=== PATIENT | female | born 1955 | race African-American/Black ===

== ENCOUNTER 2017-01-29 18:08 | Inpatient (IN) | payer SELFPAY ==
[2017-01-29] MEDS ORDERED: Morphine INJ* 4 MG/ML 1 ML SYRINGE IV ONE ×2 (18:49→21:36)
[2017-01-29] MEDS ORDERED: Ondansetron INJ* 2 MG/ML VIAL IV ONE (18:49)
[2017-01-29] MEDS ORDERED: NS 0.9% 1000 ML* 1,000 ML IV ONE (18:49)
[2017-01-29 19:09] LABS: Hematocrit 45 % (35-47); Hemoglobin 14.9 g/dl (12.0-16.0); Mean Corpuscular HGB Conc 33 g/dl (31-36); Mean Corpuscular Hemoglobin 28 pg (27-31); Mean Corpuscular Volume 84 fL (80-97); Mean Platelet Volume 9 um3 (7.4-10.4); Red Blood Count 5.37 10^6/ul (4.0-5.4); Red Cell Distribution Width 14 % (10.5-15); White Blood Count 8.4 10^3/ul (3.5-10.8)
[2017-01-29 19:25] LABS: Albumin 4.3 g/dL (3.2-5.2); BUN/Creatinine Ratio 33.5 (8-20); C Reactive Protein 44.89 mg/L (< 5.00); Calcium 11.4 mg/dL (8.6-10.3); EGFR African American 32.9 (>60); EGFR Non-African American 25.6 (>60); Globulin 4.5 g/dL (2-4); Total Bilirubin 0.9 mg/dL (0.2-1.0); Total Protein 8.8 g/dL (6.4-8.9)
[2017-01-29 19:26] LABS: Troponin I 0.02 ng/mL (<0.04)
[2017-01-29 19:54] LABS: TSH (Thyroid Stimulating Horm) 1.07 mcIU/mL (0.34-5.60)
--- NOTE | 2017-01-29 21:18 | RAD ---
INDICATION: Abdominal pain, vomiting. History of stomach cancer. COMPARISON: No relevant prior exams available on the [facility] for comparison. TECHNIQUE: Multidetector CT images were obtained from the lung bases to the ischial tuberosities. Evaluation of the viscera is limited without IV contrast. Multiplanar reformation. REPORT: Unremarkable visualized inferior thorax. Small volume of oral contrast visualized at the thoracic esophagus. Massive predominant gastric distention with liquid contents. Mild dilatation of the first and second segments of the duodenum. No obstructing mass visualized. The remainder of the small bowel and colon are largely decompressed. Normal retrocecal appendix visualized. Negative for ascites, free air, hernias. Unremarkable adrenal glands. Cortical scarring medial RIGHT kidney. Advanced atrophy of upper pole LEFT kidney. Negative for hydronephrosis. Partially distended urinary bladder without gross abnormality. Unremarkable uterus and adnexal regions. No lymphadenopathy evident with assessment limited without IV contrast. Normal diameter abdominal aorta and iliac arteries. Decompressed IVC consistent with low volume state. Negative for suspicious osseous lesions. IMPRESSION: 1. Massive predominant gastric distention with liquid contents. Mild dilatation of the first and second segments of the duodenum. No obstructing mass, pneumatosis, or stigmata of gastric perforation visualized. The gastric distention may represent chronic gastroparesis. There are no prior exams for comparison. 2. No lymphadenopathy visualized with assessment limited without IV contrast. 3. Negative for ascites.
--- NOTE | 2017-01-29 22:16 | ED ---
Erick Schwartz Benjamin, scribed for Randal Santamaria MD on 01/29/17 at 1928 . Abdominal Pain/Female - HPI Summary HPI Summary: 61yo female with stomach CA comes to ED for N/V, abdominal pain, and constipation. Pt undergone chemotherapy, which pt recently stopped as it wasnt working. Pt was rxed oxycodone for her pain, which she was advised to cause constipation. Pts last BM was 2 weeks ago and despite trying laxative still havent had any BM since. PTs abdomen is bloated and distended. - History of Current Complaint Chief Complaint: EDAbdPain Stated Complaint: GENERAL ILLNESS Time Seen by Provider: 01/29/17 18:20 Hx Obtained From: Patient, Family/Sandblaster Glass - friends ?: No Onset/Duration: Gradual Onset, Lasting Weeks - 2 weeks, Still Present Timing: Intermittent Episode Lasting Severity Initially: Moderate Severity Currently: Moderate Location: Diffuse Radiates: No Character: Other: - bloated distended Aggravating Factor(s): Nothing Alleviating Factor(s): Nothing Associated Signs and Symptoms: Positive: Constipation, Nausea, Vomiting Allergies/Adverse Reactions: Allergies Allergy/AdvReac Type Severity Reaction Status Date / Time Penicillins Allergy Unknown Verified 01/29/17 18:33 Reaction Details Home Medications: Home Medications Oxycodone HCl 10 MG 10 mg PO Q4HR PRN 01/29/17 [History Confirmed 01/29/17] PMH/Surg Hx/FS Hx/Imm Hx Previously Healthy: No Endocrine/Hematology History: Reports: Hx Diabetes Cardiovascular History: Reports: Hx Hypertension - Cancer History Cancer Type, Location and Year: stomach CA with chemo Infectious Disease History: No Infectious Disease History: Reports: Traveled Outside the [place] in Last 30 Days - [place] - Family History Known Family History: Positive: Diabetes, Other - CA - Social History Alcohol Use: Rare Substance Use Type: Reports: None Substance Use Comment - Amount & Last Used: wants to do vap [facility] Smoking Status (MU): Former Smoker Review of Systems Constitutional: Negative Eyes: Negative ENT: Negative Cardiovascular: Negative Respiratory: Negative Positive: Abdominal Pain, Vomiting, Nausea, Other - constipation. Negative: Diarrhea Genitourinary: Negative Musculoskeletal: Negative Skin: Negative Neurological: Negative Psychological: Normal All Other Systems Reviewed And Are Negative: Yes Physical Exam Triage Information Reviewed: Yes Vital Signs On Initial Exam: Initial Vitals Temp Pulse Resp BP Pulse Ox 98.2 F 85 16 133/100 100 01/29/17 18:10 01/29/17 18:10 01/29/17 18:10 01/29/17 18:10 01/29/17 18:10 Vital Signs Reviewed: Yes Appearance: Positive: Ill-Appearing - moderate, Pain Distress - moderate, Thin Skin: Positive: Warm, Skin Color Reflects Adequate Perfusion, Dry Head/Face: Positive: Normal Head/Face Inspection Eyes: Positive: EOMI, LUCAS ENT: Positive: Normal ENT inspection Neck: Positive: Supple, Nontender Respiratory/Lung Sounds: Positive: Clear to Auscultation, Breath Sounds Present Cardiovascular: Positive: Tachycardia Abdomen Description: Positive: Distended, Other: - diffuse tenderness Bowel Sounds: Positive: Hypoactive Musculoskeletal: Positive: Strength/ROM Intact Neurological: Positive: Sensory/Motor Intact, Alert, Oriented to Person Place, Time, CN Intact II-III Psychiatric: Positive: Affect/Mood Appropriate - Pollard Coma Scale Coma Scale Total: 15 Diagnostics - Vital Signs Vital Signs Temp Pulse Resp BP Pulse Ox 01/29/17 19:14 18 01/29/17 18:35 96 99 01/29/17 18:10 98.2 F 85 16 133/100 100 - Laboratory Lab Results: Lab Results 01/29/17 01/29/17 Range/Units 19:00 19:00 WBC 8.4 (3.5-10.8) 10^3/ul RBC 5.37 (4.0-5.4) 10^6/ul Hgb 14.9 (12.0-16.0) g/dl Hct 45 (35-47) % MCV 84 (80-97) fL MCH 28 (27-31) pg MCHC 33 (31-36) g/dl RDW 14 (10.5-15) % Plt Count 312 (150-450) 10^3/ul MPV 9 (7.4-10.4) um3 Neut % (Auto) 91.0 H (38-83) % Lymph % (Auto) 2.6 L (25-47) % [place] % (Auto) 6.0 (1-9) % Eos % (Auto) 0 (0-6) % Baso % (Auto) 0.4 (0-2) % Absolute Neuts (auto) 7.6 (1.5-7.7) 10^3/ul Absolute Lymphs (auto) 0.2 L (1.0-4.8) 10^3/ul Absolute Monos (auto) 0.5 (0-0.8) 10^3/ul Absolute Eos (auto) 0 (0-0.6) 10^3/ul Absolute Basos (auto) 0 (0-0.2) 10^3/ul Absolute Nucleated RBC 0.02 10^3/ul Nucleated RBC % 0.2 INR (Anticoag Therapy) 0.95 (0.89-1.11) APTT 56.4 H (26.0-36.3) seconds Result Diagrams: 01/29/17 19:00 01/29/17 19:00 Lab Statement: Any lab studies that have been ordered have been reviewed, and results considered in the medical decision making process. - CT CT A/P W/O CT Interpretation: Positive (See Comments) - CT ABD/PEL W/O IMPRESSION: 1. Massive predominant gastric distention with liquid contents. Mild dilatation of the first and second segments of the duodenum. No obstructing mass, pneumatosis , or stigmata of gastric perforation visualized. The gastric distention may represent chronic gastroparesis. There are no prior exams for comparison. 2. No lymphadenopathy visualized with assessment limited without IV contrast. 3. Negative for ascites. CT Interpretation Completed By: Radiologist Abdominal Pain Fem Course/Dx - Course Course Of Treatment: Discussed with Dr. Mendenhall (hospitalist) at 2158. PATIENT UNABLE TO TOLERATE PO. PAIN INTRACTABLE. DICUSSED RESULTS WITH PATIENT. ADMIT HOSPITALIST STABLE. - Diagnoses Provider Diagnoses: Abdominal pain, Dehydration, Renal insufficiency Discharge - Discharge Plan Condition: Stable Disposition: ADMITTED TO [facility] Referrals: No Primary Care Phys,NOPCP [Primary Care Provider] - The documentation as recorded by the Erick rajan Benjamin accurately reflects the service I personally performed and the decisions made by me, Randal Santamaria MD.
[2017-01-29] MEDS ORDERED: PROCHLORPERAZINE INJ 5 MG/ML 2 ML VIAL IV PRN (22:48)
[2017-01-29] MEDS ORDERED: Ondansetron INJ* 2 MG/ML VIAL IV PRN (22:48)
[2017-01-29 22:50] LABS: Magnesium 2.6 mg/dL (1.9-2.7)
[2017-01-29] MEDS ORDERED: Magnesium Sulf 4 GM/100 ML IV* 4,000 MG/100 ML BAG IVPB ONE (22:50)
[2017-01-29] MEDS ORDERED: NS 0.9% w/ 40 Meq KCL 1000 ML* 1,000 ML IV SCH (23:00)
[2017-01-29] MEDS ORDERED: Scopolamine 1.5 mg* PATCH TRANSDERM SCH (23:00)
--- NOTE | 2017-01-30 00:28 | HP ---
CC: [facility] * ADMISSION HISTORY AND PHYSICAL: DATE OF ADMISSION: 01/29/17 PRIMARY CARE PROVIDER: Is out of the area. FORMER ONCOLOGIST: Dr. Barrios, out of [facility] with [facility]. ADMITTING PROVIDER: FLOWER Honeycutt SUPERVISING PHYSICIAN: Chema Mendenhall MD * (DICTATED BY FLOWER HONEYCUTT) CHIEF COMPLAINT: Constipation and abdominal pain. HISTORY OF PRESENT ILLNESS: This is a 61-year-old female previously treated for hypertension and hyperlipidemia, but diagnosed with stomach cancer in June 2016, who presented to the emergency department with complaints of abdominal pain and constipation. The patient states that she just moved to the area from [place], [place] approximately 1 week ago. She completed chemotherapy in August 2016 under the guide of her primary oncologist, Dr. Barrios, who per the patient report informed the patient that she did not respond to her initial round of chemotherapy and suggested alternate regimens which the patient elected not to pursue. She has been pursuing alternative homeopathic therapies on her own and recently moved to the area to help a friend with a retreat locally and pursue additional alternative therapies. In the meantime, the patient has had very little oral intake. She says that she was 190 pounds when she started chemotherapy about 6 months ago and comes in weighing 100 pounds today. She has really been unable to keep much substance down and vomits frequently. She has not had a bowel movement in a couple of weeks and has tried multiple [id number] laxatives without improvement. She reports associated abdominal pain that is occasionally quite severe and seems to be getting worse. She has oxycodone available for her for pain control which is ineffective. The patient denies any cough or shortness of breath or recent fevers. Apart from the diabetes and hypertension which she no longer requires therapy for due to her dramatic weight loss, she denies any other medical history. She states that she has an appointment with [place] [facility] tomorrow and her records from Dr. Barrios have been transferred there and she was planning on establishing care. She is not interested in pursuing any additional chemotherapy, although seems to be holding out hope for "alternative therapies." PAST MEDICAL HISTORY: 1. Stomach cancer. 2. Diabetes - no longer taking any routine medications. 3. Hypertension - no longer taking any routine medications. HOME MEDICATIONS: Oxycodone 10 mg p.o. q.4 hours as needed for pain. SOCIAL HISTORY: The patient quit smoking about 10 to 15 years ago, unsure of her exact pack year history. She denies any regular alcohol consumption. As noted above, she just moved to the area from [place] about a week ago, but is planning on staying here indefinitely. She is currently staying with a friend and helping on a retreat locally. REVIEW OF SYSTEMS: As noted above in HPI. All other systems reviewed and are otherwise negative. PHYSICAL EXAMINATION GENERAL: This is a cachetic-appearing 61-year-old -Swiss female who appears quite lethargic and is slow to answer questions, but thoughtful in her responses. She does appear nauseated, but is otherwise in no distress. VITAL SIGNS: Initial vitals; temperature 98.2 degrees Fahrenheit, pulse 85 beats per minute, respiratory rate 16 per minute, oxygen saturation 100% on room air, and blood pressure 133/100 mmHg. HEENT: Head is normocephalic, atraumatic. Mucous membranes are pink and dry. RESPIRATORY: Lungs are clear to auscultation without wheezes, crackles, or rhonchi. CARDIOVASCULAR: Heart has a regular rate and rhythm without murmurs, rubs, or gallops. ABDOMEN: Abdomen is distended, somewhat firm, diffusely tender to palpation with hypoactive bowel sounds present. EXTREMITIES: The patient has significant muscle waisting peripherally. No significant edema appreciated; however. LABORATORY EVALUATION: CBC shows a white blood cell count of 8400, hemoglobin of 14.9 g/dL, and a platelet count of 312,000. INR normal at 0.95. Comprehensive metabolic panel shows sodium of 125 mmol/L, potassium of 3.0, serum bicarb of 35, anion gap of 19, BUN 66, creatinine 1.97. Lactic acid of 2.1. CRP of 44.8. Lipase negative. TSH 1.07. BNP of 12. HOSPITAL IMAGIN. CT of the abdomen and pelvis shows a markedly distended stomach and proximal duodenum. 2. EKG shows a sinus rhythm without ischemic changes. ASSESSMENT AND PLAN: This is a 61-year-old female with a known history of stomach cancer, but unknown history of treatments who presents with complaints of constipation and severely distended stomach on imaging, who has been pursuing alternative chemotherapy regimens for the last 6 months or so. 1. Suspected gastric outlet obstruction - this appears to be a chronic process just based on the severity of her gastric distention and her history. Suspect that she has a distal tumor that is causing outlet obstruction and severe gastric distention. Recommend NG tube decompression for immediate symptomatic relief. Control nausea with further antiemetics. Discussed with the patient considering an upper endoscopy to evaluate for the level of obstruction and severity and whether additional palliative measures may be appropriate. The patient is interested in pursuing upper endoscopy. Does not appear to be any GI coverage available this evening. Seeing as this is not an emergency, can discuss EGD with daytime GI provider tomorrow. 2. Stomach malignancy - the patient was previously cared for by Dr. Barrios with [facility] out of [facility]. The patient states that she has a pending hospice consultation for tomorrow afternoon. We will request a palliative care consultation during her hospital stay. The patient appears to be extremely malnourished and is no longer interested in pursuing definitive therapies and appears to be an appropriate hospice candidate. We will work to obtain records from prior oncologist. Oncology consultation will not be requested at this time as the patient does not appear to be interested in pursuing further definitive therapy, but this may be helpful if alternative palliative therapies are considered based on endoscopy results. 3. Hyponatremia - secondary to hypovolemia and we will rehydrate with normal saline. 4. Hypokalemia - suspect due to significant GI losses and we will replete IV and check magnesium. 5. Renal insufficiency - unable to determine acuity as there is no prior records for evaluation, but based on her history, I assume that this is acute in nature and expect some improvement with fluid resuscitation. 6. History of diabetes and hypertension - the patient no longer requires therapy per her report after marked weight loss. 7. Malnutrition - the patient has lost nearly half of her body weight over the last 6 months with significant peripheral muscle waisting and little to no oral intake noted. 8. Code status. The patient remains full code at this time. 9. Healthcare proxy is identified as her son Gildardo Reynolds out of [place], [place], available at [phone]. 10. DVT prophylaxis. Hesitant to initiate chemical prophylaxis due to known gastric tumor and worry about causing a GI bleed. We will request SCDs at this time and will allow for ambulation as tolerated. 11. Disposition. The patient is being admitted to inpatient status. Anticipate length of stay to be greater than 2 midnights. FLOWER HONEYCUTT [id number]/[facility] #: [id number] ALICIA
[2017-01-30 05:57] LABS: Hematocrit 38 % (35-47); Hemoglobin 12.5 g/dl (12.0-16.0); Mean Corpuscular HGB Conc 33 g/dl (31-36); Mean Corpuscular Hemoglobin 27 pg (27-31); Mean Corpuscular Volume 84 fL (80-97); Mean Platelet Volume 9 um3 (7.4-10.4); Red Blood Count 4.56 10^6/ul (4.0-5.4); Red Cell Distribution Width 14 % (10.5-15); White Blood Count 7.5 10^3/ul (3.5-10.8)
[2017-01-30 06:16] LABS: BUN/Creatinine Ratio 38.2 (8-20); EGFR African American 38.3 (>60); EGFR Non-African American 29.7 (>60); Potassium 3.7 mmol/L (3.5-5.0)
--- NOTE | 2017-01-30 07:53 | RAD ---
HISTORY: Reevaluate gastric distention COMPARISONS: CT dated January 29, 2017 VIEWS: Frontal views of the abdomen. FINDINGS: BOWEL: There is a nonobstructive bowel gas pattern. There is no gaseous distention of the stomach; however, there is persistent inferior displacement of the transverse colon similar to the previous CT, suggestive of persistent fluid distention of the stomach. A gastric tube is noted with the tip in the upper abdomen, likely within a prepyloric position. CALCULI: There are no abnormal calculi. BONES AND SOFT TISSUES: Degenerative changes are noted OTHER FINDINGS: The lung bases are clear. There is no subphrenic gas. IMPRESSION: THERE IS NO GASEOUS DISTENTION OF THE STOMACH; HOWEVER, THERE IS LIKELY PERSISTENT LIQUID DISTENTION OF THE STOMACH BASED ON THE INFERIOR DISPLACED INTO THE TRANSVERSE COLON
--- NOTE | 2017-01-30 09:27 | PN ---
Subjective Date of Service: 01/30/17 Interval History: This is a 61 yo female who recently located to the area from [place], [place]. She reports that she was diagnosed with stomach cancer and was treated with chemotherapy and radiation. She was offered additional chemo but declined, as she did not tolerate it well. She also states she met with a surgeon who told her that he would have to take a large portion of her stomach and intestine, which would result in her having to eat several small meals a day. She states that "this is no different than what I'm doing now, so why have surgery?" Since then, she has been in search of alternative treatments, which has included drinking herbs and teas, participating in paradise chi, looking into acupuncture, and searching out other nutritional therapies. She states that she is not well experienced in these modalities, and she is looking for a provider to help guide her in alternative medicine. I asked the patient what her goal is by pursuing these therapies and asked if she was pursuing pain management. She affirms that she is looking for help with pain but also states that she is also looking for something to naturally shrink the tumor and treat the cancer. We then discussed her willingness to speak with our hospital specialists regarding further treatment options that we can offer here in the hospital. She is willing to have an endoscopy and open to hearing treatment options, "so long as it doesn't include chemotherapy or radiation." She has also conveyed multiple times that she would like to continue to eat food, even if it makes her sick afterwards. Dr. Hsieh entered the room during our conversation and discussed potential treatment options which included 1) PEG tube for decompression, 2) surgical rerouting around gastric outlet obstruction, 3) stent placement for dilatation, and 4) palliative care. The patient is in agreement to have the endoscopy this AM. She has then asked for the NG tube to be removed and to allow her to eat food. She was presented with the concern multiple times that she would likely vomit the food, as it will most likely get stuck. She verbalized understanding of this and then asked for a regular unrestricted diet following her endoscopy. After the procedure, she is willing to discuss options with GI and palliative care. Patient reports that she has had much relief following placement of her NG tube. She denies CP, SOB, abd pain, n/v. No other acute concerns, other than wanting to eat food as soon as possible. Family History: Unchanged from Admission Social History: Unchanged from Admission Past Medical History: Unchanged from Admission Objective Active Medications: Potassium Chloride/Dextrose (D5w Ns 0.9% 40meq Kcl 1000 Ml*) 1,000 mls @ 75 mls /hr IV PER RATE SKYE Ondansetron HCl (Zofran Inj*) 4 mg IV Q4H PRN PRN Reason: NAUSEA Pharmacy Profile Note (Scopolomine Patch Remove*) 1 note PATCH OFF Q72H SKYE Prochlorperazine Edisylate (Compazine Inj*) 5 mg IV Q6H PRN PRN Reason: NAUSEA/VOMITING Scopolamine (Transderm-Scop 1.5 Mg Patch*) 1 patch TRANSDERM Q72H SKYE Last Admin: 01/30/17 00:58 Dose: 1 patch Vital Signs 01/29/17 01/29/17 01/29/17 22:30 22:40 23:00 Temperature 97.6 F Pulse Rate 84 81 80 Respiratory 16 Rate Blood Pressure 149/98 149/98 141/98 (mmHg) O2 Sat by Pulse 95 99 95 Oximetry 01/30/17 01/30/17 01/30/17 01:17 03:42 07:26 Temperature 97.3 F 97.4 F Pulse Rate 77 73 73 Respiratory 16 16 16 Rate Blood Pressure 128/91 120/70 113/71 (mmHg) O2 Sat by Pulse 100 99 100 Oximetry Oxygen Devices in Use Now: None Appearance: Frail, cachectic, ill appearing female, sitting up in bed, NAD Eyes: No Scleral Icterus Ears/Nose/Mouth/Throat: Clear Oropharnyx, Mucous Membranes Moist Neck: NL Appearance and Movements; NL JVP Respiratory: Symmetrical Chest Expansion and Respiratory Effort, Clear to Auscultation Cardiovascular: NL Sounds; No Murmurs; No JVD Abdominal: - - abd soft, mildly distended and mildly tender Extremities: No Edema Neurological: Alert and Oriented x 3 Lines/Tubes/Other Access: Clean, Dry and Intact Peripheral IV Result Diagrams: 01/30/17 05:45 01/30/17 05:45 Additional Lab and Data: Lab Results 01/29/17 01/29/17 Range/Units 19:00 19:00 WBC 8.4 (3.5-10.8) 10^3/ul RBC 5.37 (4.0-5.4) 10^6/ul Hgb 14.9 (12.0-16.0) g/dl Hct 45 (35-47) % MCV 84 (80-97) fL MCH 28 (27-31) pg MCHC 33 (31-36) g/dl RDW 14 (10.5-15) % Plt Count 312 (150-450) 10^3/ul MPV 9 (7.4-10.4) um3 Neut % (Auto) 91.0 H (38-83) % Lymph % (Auto) 2.6 L (25-47) % [place] % (Auto) 6.0 (1-9) % Eos % (Auto) 0 (0-6) % Baso % (Auto) 0.4 (0-2) % Absolute Neuts (auto) 7.6 (1.5-7.7) 10^3/ul Absolute Lymphs (auto) 0.2 L (1.0-4.8) 10^3/ul Absolute Monos (auto) 0.5 (0-0.8) 10^3/ul Absolute Eos (auto) 0 (0-0.6) 10^3/ul Absolute Basos (auto) 0 (0-0.2) 10^3/ul Absolute Nucleated RBC 0.02 10^3/ul Nucleated RBC % 0.2 INR (Anticoag Therapy) 0.95 (0.89-1.11) APTT 56.4 H (26.0-36.3) seconds Assess/Plan/Problems-Billing Assessment: Ms. Olivera is a 61 yo female with a PMH of stomach cancer s/p chemo in [place], DM, and HTN who presented to the ED on 01/29 with concern for abdominal pain and constipation. Pt's CT scan shows significant gastric distention that is likely secondary to gastric outlet obstruction. - Patient Problems (1) Abdominal pain Code(s): R10.9 - UNSPECIFIED ABDOMINAL PAIN Comment: Suspect secondary to gastric outlet obstruction from neoplasm CT shows marked distention of stomach and proximal duodenum Appreciate GI consult Plan to evaluate extent of obstruction with upper endoscopy Patient has obtained relief of abdominal pain and distention with NG tube but is now requesting removal. Plan for palliative care consult today, as patient is refusing further chemotherapy and is not certain if she wants surgical treatment. (2) Malignant neoplasm of stomach Comment: Records requested from Dr. Barrios in [facility] with [facility]. Patient previously completed chemotherapy and states she declined surgery and further chemo. Patient declines oncology consult here and is interested in alternative therapies and [facility]. (3) Hyponatremia Code(s): E87.1 - HYPO-OSMOLALITY AND HYPONATREMIA Comment: Improving Suspect secondary to hypovolemia Continue volume replacement (4) Hypokalemia Code(s): E87.6 - HYPOKALEMIA Comment: Improving Suspect secondary to GI losses, including emesis Continue IV repletion (5) Renal insufficiency Code(s): N28.9 - DISORDER OF KIDNEY AND URETER, UNSPECIFIED Comment: Improving Acuity/chronicity unclear Patient does have hx of DM and HTN but will await previous records Likely exacerbated by patient's poor nutritional and volume status Continue IVF (6) Malnutrition Code(s): E46 - UNSPECIFIED PROTEIN-CALORIE MALNUTRITION Comment: Approx. 100lb weight loss over past 6 months Patient has significant muscle wasting noted to lower extremities Secondary to gastric cancer and likely subsequent malabsorption and obstruction (7) Hx of type 2 diabetes mellitus Code(s): Z86.39 - PERSONAL HISTORY OF ENDO, NUTRITIONAL AND METABOLIC DISEASE Comment: No longer on treatment, secondary to stomach cancer and weight loss (8) Hx of essential hypertension Code(s): Z86.79 - PERSONAL HISTORY OF OTHER DISEASES OF THE CIRCULATORY SYSTEM Comment: Normotensive No longer on treatment, secondary to stomach cancer and weight loss (9) DVT prophylaxis Comment: SCDs Concern for gastrointestinal bleeding with significant stomach cancer (10) Full code status Code(s): Z78.9 - OTHER SPECIFIED HEALTH STATUS Comment: Patient would like to be a full code. Plan for palliative care meeting today, code status will be readdressed during meeting. Status and Disposition: Inpatient admission. Anticipate 2-4 day LOS. Dispo depending on palliative care meeting and endoscopy findings.
[2017-01-30] MEDS ORDERED: Dextrose 50% Syringe 50 ML* 25 GM/50 ML SYRINGE IV PUSH PRN (09:56)
[2017-01-30] MEDS ORDERED: D5W NS 0.9% 40Meq KCL 1000 ML* 1,000 ML IV SCH (10:00)
[2017-01-30] MEDS ORDERED: Morphine INJ* 4 MG/ML 1 ML SYRINGE IV PRN (11:00)
[2017-01-30] MEDS ORDERED: Dextrose 50% Syringe 50 ML* 25 GM/50 ML SYRINGE IV PUSH ONE (12:00)
[2017-01-30] MEDS ORDERED: Docusate LIQ* 100 MG/10 ML UDC PO PRN (12:02)
[2017-01-30] MEDS ORDERED: Polyethylene Glycol 3350* 17 GM PACKET PO PRN (12:02)
--- NOTE | 2017-01-30 14:18 | CONS ---
CC: FLOWER Charles * CONSULTATION REPORT: DATE OF CONSULTATION: 01/30/17 REQUESTING PHYSICIAN: FLOWER Charles INDICATION: Gastric outlet obstruction. NARRATIVE: This is a very pleasant, but unfortunate 61-year-old female, who has a history of gastric cancer. We do not have any records yet. I did speak to the patient and reviewed the chart. Reportedly this was diagnosed at the end of last year. She had been down in [place] receiving all of her treatments. By her report, she finished chemotherapy around August of this year. However, she did not respond to the chemotherapy and her oncologist recommended other treatments; however, the patient did not want to pursue these. She has moved here to [place] to pursue alternative therapies for her stomach cancer. She states that she has been vomiting every day for the past few weeks. She has lost approximately 90 pounds. She will vomit food that she just ate. She also has been constipated. She has been using narcotics for pain control. There is no blood in the vomit. She did have an abdominal x-ray first thing this morning, which showed gaseous distention of the stomach suggestive of a gastric outlet obstruction. PAST MEDICAL HISTORY: Significant for, hypertension, diabetes, and stomach cancer. MEDICATIONS: Include oxycodone as needed. SOCIAL HISTORY: She quit smoking many years ago. She just moved from [place] to [place]. REVIEW OF SYSTEMS: Twelve systems were reviewed, other than mentioned in the HPI were unremarkable. PHYSICAL EXAM: Temperature is 97.4, blood pressure is 120/74, pulse is 73. General: Chronically ill-appearing female, in no apparent distress. Alert, oriented, and pleasant. HEENT: NG tube in place. Poor dentition. Neck is supple. Trachea is midline. Heart: Regular rate and rhythm. Lungs: Clear to auscultation. Abdomen: Slightly distended, soft. Positive bowel sounds. Skin is warm and dry. LABORATORY DATA/LABORATORY DATA: Of note, white count is 7.5, hemoglobin 12.5, INR is 0.95. Her BUN is 66, creatinine 1.73. CT of the abdomen and pelvis from last night in the emergency room showed gastric distention with liquid dilatation of the first and second portions of the duodenum. ASSESSMENT AND PLAN: This is a very pleasant 61-year-old female with reported gastric cancer, who likely has gastric outlet obstruction. I had a very long discussion with the patient and her friends. She appears to be palliative at this point. She is pursuing alternative therapies at this point. Given her gastric outlet obstruction we had a long discussion regarding what to do about that. We discussed possible options including surgery for diversion, which will be palliative, palliative stents, a venting PEG tube, or doing nothing. The patient would like to first get more information. She is requesting an upper endoscopy to evaluate how narrow the opening is and then she would like to have time to think about things and have discussions with her friends regarding what to do next. We will pursue an upper endoscopy today and then await her decision at a later time. [id number]/CPS #: [id number] ALICIA
--- NOTE | 2017-01-30 16:26 | PN ---
Progress Note - Progress Note Date of Service: 01/30/17 Note: I stopped by to speak with this patient about her plans for outpatient follow up. She needs a primary care provider. She is clearly hospice appropriate and plans to return to [facility], a residence [place] in [place]. She has plans for alternative therapies such as homeopathy and dietary modifications because she wants to try to shrink her tumor and regain her weight and strength. She has lost about 90 pounds in the last few months. Her main symptoms have been vomiting and gastric distention, and weight loss, all presumably secondary to gastric outlet obstruction. Although she is opposed to a G tube, she is willing to consider a stent to relieve her symptoms. I spoke with Dr. Hsieh and was informed that stents are not placed in this hospital, and she would have to be transported elsewhere, probably [place], for stent placement. We discussed advance directives at great length and she has elected DNR/DNI status.
--- NOTE | 2017-01-30 17:44 | CONS ---
PALLIATIVE CARE CONSULTATION: DATE OF CONSULT: 01/30/17 PRIMARY CARE PHYSICIAN: The patient does not have a primary care physician. REFERRING PROVIDER: FLOWER Charles HOSPITAL COURSE: This is a 61-year-old female with past medical history of stage IV gastric cancer diagnosed in June 2016, status post chemo, who presented to the emergency room with constipation and abdominal pain. The patient states that she was diagnosed with stage IV gastric cancer back in June 2016. At that time, she received chemotherapy and it did not work. At that time, she no longer wanted chemo, radiation, or surgery as an option, but she was exploring alternative treatment. She has been living in [place] up until a week ago when she came up to [place] for a conference and then was seeking alternative treatment program and was told about the [facility], the [facility] in [place], and came here and has been here for the past week. The patient has been frustrated with the medical system. She states when she was down at [place], they had difficulty with continuity and treating her for pain and she lost her disability insurance at that time and they did not want to treat her with alternative treatment that she was recommending. On my encounter, the patient wants care for her cancer with alternative therapy. She states that she has had significant amount of abdominal pain, anorexia, and a 90-pound weight loss over the past year, and she has nausea and vomiting almost daily. On arrival to the emergency room, there was concern for gastric outlet obstruction. The patient had an NG tube placed, remained n.p.o., and had a GI consult for further evaluation. She spoke with Dr. Hsieh who she is agreeable to undergo an EGD for more prognostic information, but does not seem to be interested in any further intervention. I asked her about feeding tubes, she states that she does not want it and does not think she will ever need it. She is requesting to have NG tube removed and to eat solid food as the NG tube is very uncomfortable for her. She is no longer having any abdominal pain at this time and no nausea. She is stating that she is uncomfortable due to the NG tube. Last bowel movement was 2 weeks ago. She is passing flatus. I spoke with the patient at length regarding that with a stage IV gastric cancer and not interested in seeking traditional treatment with chemo, radiation, or surgery that she is eligible for hospice services with a prognosis of less than 6 months and she is interested in receiving hospice services at [facility] that she is living at. I did speak with her regarding the hospital and hospice care does not do alternative treatments and that we would not be able to provide any recommendations for alternative therapy and that there are no research studies that show that alternative treatment cures cancer. We also spoke about the MOLST form at length. The patient states that she needs to think about it and does not think it is going to be a concern for her for a while and would like to remain a full code at this time. She does have 2 friends there from [facility], who state that they will support her back at the [facility] caring for her with hospice involvement. Otherwise remaining review of systems is negative. PAST MEDICAL HISTORY: 1. History of stage IV gastric cancer, diagnosed in June 2016, status post chemotherapy. 2. History of diabetes, diet controlled. INPATIENT MEDICATIONS: 1. D5 normal saline at 75 cc an hour. 2. Morphine 4 mg every 4 hours as needed for pain. 3. Zofran 4 mg IV q.4 hours as needed. 4. Compazine 5 mg every 6 hours as needed. 5. Scopolamine patch q.72 hours. ALLERGIES: PENICILLIN, unknown reaction. FAMILY HISTORY: Reviewed and noncontributory. SOCIAL HISTORY: As mentioned, the patient was living in [place], has moved up to the [facility] since this past week. Her son , Don Mckay, is her healthcare proxy. His phone number is [phone]. He resides in [place]. She is currently a full code. She quit smoking 10 to 15 years ago. No alcohol use or illicit drug use. REVIEW OF SYSTEMS: Fourteen-point review of systems as mentioned in the HPI. Pertinent positives and negatives as mentioned in the HPI, otherwise negative. PHYSICAL EXAM: Vital Signs: Temp 97.4, pulse rate 73, respiratory rate 16, oxygen saturation 100% on room air, blood pressure 113/71. General: In no acute distress, cachectic, malnourished appearing, with 2 of her friends at the bedside. Head, normocephalic. She has bitemporal wasting. Eyes: Pupils are equal and reactive, anicteric. Oropharynx: Mucous membranes are dry. NG tube was placed in the right naris. Neck is supple. Cardiac: Regular rate and rhythm. Soft systolic murmur heard throughout. Respiratory: Diminished breath sounds. No wheezes, rhonchi, or rales. Abdomen: Hypoactive bowel sounds. Soft, some mild distention, mild mid abdominal discomfort. No rebound or guarding. Extremities: No clubbing, cyanosis, or edema. Neurologic: Alert and oriented x3. No focal neurological deficits. DIAGNOSTIC STUDIES/LAB DATA: White count 7.5, hemoglobin 12.5, hematocrit 38, and platelets 222. Sodium 130, potassium 3.7, chloride 83, bicarb 37, BUN 66, creatinine 1.73, glucose 102, albumin is 4.3. Radiographic sheila: Abdomen and pelvis CT shows massive predominant gastric distention with liquid contents, mild dilatation of the first and second segments of the duodenum. No obstructing mass, pneumatosis, or stigmata of gastric perforation visualized. The gastric distention may represent chronic gastroparesis. Abdominal film: There is no gaseous distention of the stomach. However, there is likely persistent liquid distention of the stomach based on the inferior into the transverse colon. ASSESSMENT AND PLAN: This is a 61-year-old female with past medical history of stage IV gastric cancer, who presented to the emergency room with abdominal pain and constipation, also was noted to be in acute renal failure. Her findings are concerning for gastric outlet obstruction. I spoke with the patient at length regarding her goals and she seems unrealistic in her expectation that alternative therapy is going to cure her cancer. She also wants her goal here to be symptom free and to treat her abdominal pain, which we have seem to have done with NG tube placement and morphine. She is now requesting NG tube be removed. I spoke with Dr. Hsieh who is agreeable to this and allowing her to be on regular diet and then she is going to be n.p.o. after midnight for EGD for further prognosis. The patient is interested in enrolling with hospice, which she is eligible for based on her stage IV gastric cancer and her malnourished state with weight loss. I think once she is able to establish rapport, re-addressing her goals of care, her MOLST form will be pertinent to her care. I did start also her on bowel regimen as well as she is getting morphine as needed for pain and I am concerned that when she resumes her solid diet intake that her abdominal pain discomfort and nausea, vomiting will return and then she will need NG tube placed back in. The [facility] staff states that they can support her there with hospice services once the patient is stable for discharge. Pending tomorrow's EGD results, patient may be a candidate for palliative stent which would allow her to tolerate PO better. Recommend follow up discussion regarding management once EGD has been done. Patient also needs to be established with a PCP in the community. Thank you for this consultation. I will follow along with you. PATIENT TIME: Greater than 100 minutes spent doing the consultation, more than half the time was spent in direct patient contact. [id number]/[facility] #: [id number] ALICIA
[2017-01-30] MEDS ORDERED: D10W 1000 ML BAG* 1,000 ML IV SCH (18:00)
[2017-01-31 06:17] LABS: Calcium 10.1 mg/dL (8.6-10.3); EGFR African American 60.7 (>60); EGFR Non-African American 47.2 (>60); Potassium 3.2 mmol/L (3.5-5.0)
[2017-01-31] MEDS ORDERED: D5W NS 0.9% 40Meq KCL 1000 ML* 1,000 ML IV SCH (08:00)
--- NOTE | 2017-01-31 08:30 | PN ---
Subjective Date of Service: 01/31/17 Interval History: Patient seen and examined at bedside. She is upset because she had chest and abdominal pain yesterday around 1700, stating "It's different than before." She thinks it may be due to her blood sugar fluctuations. When presented with the idea that the patient had eaten solid foods earlier in the day and was very likely experiencing discomfort from her gastric outlet obstruction, the patient became very agitated stating, "the pain has never been like that." She also states the NG tube did not help with the discomfort like it did when she was admitted. She was frustrated with the idea that the food she ate may still be causing her discomfort. We discussed that the endoscopy may help us to know the degree of her obstruction and if the food she ate yesterday may be contributing to her persistent discomfort. Patient in agreement with endoscopy today. Currently, the patient denies chest pain, SOB. She reports persistent abdominal fullness, denies n/v. Family History: Unchanged from Admission Social History: Unchanged from Admission Past Medical History: Unchanged from Admission Objective Active Medications: Dextrose (D50w Syringe 50 Ml*) 25 gm IV PUSH .FOR FS < 60 - SS PRN PRN Reason: FS < 60 Last Admin: 01/30/17 17:28 Dose: 25 gm Docusate Sodium (Colace Liq*) 100 mg PO BID PRN PRN Reason: CONSTIPATION Heparin Sodium (Porcine) (Heparin Flush Port (Ivad)) 5 ml FLUSH DAILY SKYE PRN Reason: Protocol Potassium Chloride/Dextrose (D5w Ns 0.9% 40meq Kcl 1000 Ml*) 1,000 mls @ 100 mls/hr IV PER RATE [facility] Morphine Sulfate (Morphine Inj (Syringe)*) 4 mg IV Q4H PRN PRN Reason: PAIN Last Admin: 01/30/17 17:57 Dose: 4 mg Ondansetron HCl (Zofran Inj*) 4 mg IV Q4H PRN PRN Reason: NAUSEA Last Admin: 01/30/17 17:57 Dose: 4 mg Pharmacy Profile Note (Scopolomine Patch Remove*) 1 note PATCH OFF Q72H [facility] Polyethylene Glycol/Electrolytes (Miralax*) 17 gm PO DAILY PRN PRN Reason: CONSTIPATION Prochlorperazine Edisylate (Compazine Inj*) 5 mg IV Q6H PRN PRN Reason: NAUSEA/VOMITING Scopolamine (Transderm-Scop 1.5 Mg Patch*) 1 patch TRANSDERM Q72H [facility] Last Admin: 01/30/17 00:58 Dose: 1 patch Vital Signs 01/30/17 01/30/17 01/30/17 16:35 17:57 18:57 Temperature 97.7 F Pulse Rate 79 Respiratory 19 18 18 Rate Blood Pressure 127/83 (mmHg) O2 Sat by Pulse 99 Oximetry 01/30/17 01/30/17 01/30/17 19:16 20:05 21:00 Temperature 96.3 F Pulse Rate 79 Respiratory 20 18 Rate Blood Pressure 147/111 (mmHg) O2 Sat by Pulse 100 Oximetry 01/30/17 01/31/17 23:23 03:50 Temperature 97.6 F 97.7 F Pulse Rate 66 77 Respiratory 16 16 Rate Blood Pressure 116/84 132/86 (mmHg) O2 Sat by Pulse 100 100 Oximetry Oxygen Devices in Use Now: None Appearance: Cachectic, frail female, sitting up in bed, withdrawn Eyes: No Scleral Icterus Ears/Nose/Mouth/Throat: Mucous Membranes Moist Neck: NL Appearance and Movements; NL JVP Respiratory: Symmetrical Chest Expansion and Respiratory Effort, Clear to Auscultation Cardiovascular: NL Sounds; No Murmurs; No JVD, RRR Abdominal: - - abd soft, mildly distended, tender to palpation Extremities: - - muscle wasting noted to peripheral extremities, poor muscle mass Neurological: Alert and Oriented x 3 Lines/Tubes/Other Access: Clean, Dry and Intact Naso-enteral Tube, Clean, Dry and Intact Peripheral IV Result Diagrams: 01/30/17 05:45 01/31/17 05:44 Additional Lab and Data: Lab Results 01/29/17 01/29/17 Range/Units 19:00 19:00 WBC 8.4 (3.5-10.8) 10^3/ul RBC 5.37 (4.0-5.4) 10^6/ul Hgb 14.9 (12.0-16.0) g/dl Hct 45 (35-47) % MCV 84 (80-97) fL MCH 28 (27-31) pg MCHC 33 (31-36) g/dl RDW 14 (10.5-15) % Plt Count 312 (150-450) 10^3/ul MPV 9 (7.4-10.4) um3 Neut % (Auto) 91.0 H (38-83) % Lymph % (Auto) 2.6 L (25-47) % [place] % (Auto) 6.0 (1-9) % Eos % (Auto) 0 (0-6) % Baso % (Auto) 0.4 (0-2) % Absolute Neuts (auto) 7.6 (1.5-7.7) 10^3/ul Absolute Lymphs (auto) 0.2 L (1.0-4.8) 10^3/ul Absolute Monos (auto) 0.5 (0-0.8) 10^3/ul Absolute Eos (auto) 0 (0-0.6) 10^3/ul Absolute Basos (auto) 0 (0-0.2) 10^3/ul Absolute Nucleated RBC 0.02 10^3/ul Nucleated RBC % 0.2 INR (Anticoag Therapy) 0.95 (0.89-1.11) APTT 56.4 H (26.0-36.3) seconds Assess/Plan/Problems-Billing Assessment: Ms. Olivera is a 61 yo female with a PMH of stomach cancer s/p chemo in [place], DM, and HTN who presented to the ED on 01/29 with concern for abdominal pain and constipation. Pt's CT scan shows significant gastric distention that is likely secondary to gastric outlet obstruction. - Patient Problems (1) Abdominal pain Code(s): R10.9 - UNSPECIFIED ABDOMINAL PAIN Comment: Initially improved with NGT. Patient insisted on eating pancakes yesterday and now has recurrent complaint of abdominal fullness and discomfort as well as pain yesterday. Suspect secondary to gastric outlet obstruction from neoplasm CT shows marked distention of stomach and proximal duodenum Appreciate GI consult Plan to evaluate extent of obstruction with upper endoscopy today Patient plans to sign on with hospice; may be open to possibility of stent in [place], if possible. (2) Malignant neoplasm of stomach Comment: Patient with stage IV stomach cancer, with possible liver involvement S/p FOLFOX chemotherapy, per records Patient previously completed chemotherapy and states she declined surgery and further chemo. Patient declines oncology consult here and is interested in alternative therapies and [facility]. (3) Hyponatremia Code(s): E87.1 - HYPO-OSMOLALITY AND HYPONATREMIA Comment: Suspect secondary to hypovolemia Continue volume replacement (4) Hypokalemia Code(s): E87.6 - HYPOKALEMIA Comment: Suspect secondary to GI losses, including emesis Continue IV repletion (5) Renal insufficiency Code(s): N28.9 - DISORDER OF KIDNEY AND URETER, UNSPECIFIED Comment: Improving Patient does appear to have some mild renal insufficiency at baseline based on [facility] records (creatinine noted 1.3 in notes) Likely exacerbated by patient's poor nutritional and volume status Continue IVF (6) Severe protein-calorie malnutrition Code(s): E43 - UNSPECIFIED SEVERE PROTEIN-CALORIE MALNUTRITION Comment: Approx. 100lb weight loss over past 6 months Patient has significant muscle wasting noted to lower extremities Secondary to gastric cancer and likely subsequent malabsorption and obstruction (7) Hx of type 2 diabetes mellitus Code(s): Z86.39 - PERSONAL HISTORY OF ENDO, NUTRITIONAL AND METABOLIC DISEASE Comment: Patient accidentally received 20 units regular insulin yesterday BG has normalized with D10W infusion Continue q4 BG checks, discontinue later today if BG remains stable No longer takes insulin or hypoglycemic medications, secondary to stomach cancer and weight loss (8) Hx of essential hypertension Code(s): Z86.79 - PERSONAL HISTORY OF OTHER DISEASES OF THE CIRCULATORY SYSTEM Comment: Normotensive No longer on treatment, secondary to stomach cancer and weight loss (9) DVT prophylaxis Comment: SCDs Concern for gastrointestinal bleeding with significant stomach cancer (10) DNR (do not resuscitate) Status and Disposition: Inpatient admission. Anticipate 2-4 day LOS. Dispo depending on palliative care meeting and endoscopy findings.
[2017-01-31] MEDS ORDERED: Meperidine SYRINGE* 50 MG/ML ONE (09:07)
[2017-01-31] MEDS ORDERED: Midazolam* 1 MG/ML 10 ML VIAL (10 MG) ONE (09:07)
[2017-01-31 13:36] VITALS: BP 126/86
--- NOTE | 2017-01-31 14:51 | PN ---
Hospitalist Progress Note Phone call received from nursing stating that patient was visibly upset that no one has updated her and has been asking to leave. I met with patient and her friend and discussed the endoscopy findings. Per Dr. Duran, he was unable to pass the scope through the pylorus, indicating complete obstruction (also opens possibility of a peritoneal carcinomatosis). I discussed these findings with the patient, as well as the option of a venting PEG tube and/or the possibility of pursuing a J-tube for nutrition. The patient continues to communicate her desire to eat the foods she wants. She reports that she feels her pain is due to constipation and is asking for bowel medication. She has asked for written information on these treatments but would like something to help with her bowels and to go home. We discussed that the patient likely does not pass much to create residue for regular BM but patient agreed to KUB as an objective evaluation. We could certainly try a gentle enema to see if we can stimulate any bowel movement, if stool is present. Oral preparations would likely be minimally or ineffective, secondary to malabsorption from stomach cancer. Patient is refusing any more treatment here and wants to leave today. She has asked for pain medication to be sent to a pharmacy, which is, of course, reasonable. Patient to have hospice sign on tomorrow. 45 minutes spent in meeting with patient and friend.
--- NOTE | 2017-01-31 15:16 | RAD ---
HISTORY: Constipation, abdominal pain COMPARISONS: January 30, 2017 VIEWS: Frontal views of the abdomen. FINDINGS: BOWEL: There is a nonobstructive bowel gas pattern. There is a large amount of stool within the colon. There is no appreciable gaseous distention of the stomach. CALCULI: There are no abnormal calculi. BONES AND SOFT TISSUES: There are no osseous abnormalities. OTHER FINDINGS: The lung bases are clear. There is no subphrenic gas.There has been interval removal of a gastric tube. IMPRESSION: NONOBSTRUCTIVE BOWEL GAS PATTERN. LARGE AMOUNT OF STOOL WITHIN THE COLON.
--- NOTE | 2017-02-01 08:25 | PRO ---
DATE: 01/31/17 - ROOM #420 REFERRING PHYSICIAN: Lori Howard NP * PROCEDURE: Upper gastrointestinal endoscopy and biopsy of gastric antrum. INDICATION: This 61-year-old woman with gastric cancer, originally treated in [place] and felt to be now untreatable via chemotherapy, presents with gastric outlet obstruction or upper gastrointestinal obstruction. CT scan showed a large distended stomach, some distention of first to second portion of the duodenum, and no dominant mass. Extensive discussions have been held with the patient, the hospitalist team, palliative care team, and Dr. Hsieh. Today's exam was perceived of as a diagnostic exam to assist in further decision making vis-a-vis comfort care palliation, percutaneous gastrostomy plus comfort care, dilation of a stricture if available versus palliative surgery, or even referral for a stent. This was agreed with the patient before sedatives were administered today. She agreed that, if the nasogastric tube would likely need to be reinserted within a matter of hours to days, it would be best to leave it in place. ENDOSCOPIST: Dr. Duran. MEDICATIONS: Midazolam 3.5, meperidine 25 with good somnolence. FINDINGS: She is a chronically ill-appearing, emaciated black female in no overt distress. She was not coughing or short of breath. EGD: Larynx - narrow, with an NG tube in place. Esophagus - normal mucosa with the NG tube transiting, and the EG junction at 38 appearing normal. There were no erosions and no scars. Stomach - two-thirds full with a large amount of semi-solid particulate and liquid debris. In the course of the procedure, approximately 500 cc of material was suctioned up plus an additional 200 to 300 cc of irrigation material that was used to unclog the scope periodically. No regurgitation or aspiration occurred. Stomach was partially distended and, at the end of the procedure, translumination and finger indentation was achieved in the appropriate mid epigastric area. There was extensive erythema and erosive change in the stomach. The antrum had a normal configuration, but was irritated and granular. The pylorus was stenotic. The appearance of abnormal tissue, although not a fungating mass. Biopsies were taken. An attempt was made to thread a cqdogvr-gjd-amfcl dilator into the distal duodenum, but this failed and no passage could be obtained, and thus no dilation was done. Biopsies were taken of the pylorus. IMPRESSION: Pyloric obstruction versus high upper gastrointestinal obstruction - CT scan results make both possibilities a consideration. Placement of a stent is not likely to be efficacious, although it could be considered at another center. A palliative gastrostomy tube would be appropriate if the patient wishes to go that route with her palliation plan. It would be considered clearly higher risk for local infection and bleeding than the average percutaneous gastrostomy. At this time, the choice of an outpatient primary physician or hospice supervising physician has not been made. Addendum: pyloric Bx show invasive adenocarcinoma [id number]/[facility] #: [id number] MTDD
--- NOTE | 2017-02-01 16:04 | DS ---
CC: Dr. Gilbert of Palliative Care; Dr. Tor Hsieh, Gastroenterology * MEDICINE DISCHARGE SUMMARY: DATE OF ADMISSION: 01/29/17 DATE OF DISCHARGE: 01/31/17 PROVIDER: Jose Frias NP ATTENDING PHYSICIAN: Dr. Lucia Franco * (dictated by Jose Frias NP). PRIMARY CARE PROVIDER: The patient recently relocated from [place]. Referral pending. CONSULTING PHYSICIAN: Dr. Lillian Gilbert, Palliative Care. GASTROENTEROLOGY: Dr. Tor Hsieh. PRIMARY DISCHARGE DIAGNOSES: 1. Stage 4 stomach cancer. 2. Abdominal pain. 3. Severe protein calorie malnutrition. SECONDARY DISCHARGE DIAGNOSES: 1. Type 2 diabetes, diet controlled. 2. Hypertension. HOME MEDICATIONS AT DISCHARGE: 1. Morphine oral concentrate 5 mg q.4 hours p.r.n. pain. 2. Scopolamine 1.5 mg patch 1 patch transdermally q.72 hours. 3. Dulcolax suppository 10 mg per rectum daily p.r.n. DIAGNOSTIC TESTING DURING THIS ADMISSION: 1. CT of the abdomen and pelvis, impression: Massive predominant gastric distention with liquid contents. Mild dilatation of the first and second segment of the duodenum. No obstructing mass, pneumatosis, or stigmata of gastric perforation visualized. The gastric distention may represent chronic gastroparesis. There are no prior exams for comparison. 2. No lymphadenopathy visualized with assessment limited without IV contrast. 3. Negative for ascites. 4. KUB of the abdomen from 01/29/17, impression: There is no gastric distention in the stomach. However, there is likely persisted liquid distention of the stomach based on the inferior displaced into the transverse colon. 5. KUB from 01/31/17, impression: Non obstructive bowel gas pattern. Large amount of stool within the colon. HOSPITAL COURSE OF STAY: For full details, please refer to the H and P provided by [facility]. In summary, Ms. Olivera is a 61-year-old female who was recently treated for a stage 4 stomach cancer in [place], [place]. She was diagnosed in June 2016 and, since then, has experienced an approximate 90 to 100 pound weight loss. In [place], the patient underwent chemotherapy and radiation under the care of her primary oncologist, Dr. Barrios. The patient apparently declined to have surgery and relocated here to [place] with the hope of pursuing additional alternative therapies to treat and cure her cancer. The patient does endorse increasingly poor p.o. intake and has had difficulty keeping food down. She reports frequent vomiting. She reports not having any bowel movement in over 10 days and has tried multiple cwkv-szf-vmssrvq laxatives without effect. She has reported that her pain control with oxycodone has been ineffective. As an outpatient, she has pursued an appointment with [facility] but was unable to make to the appointment due to her admission here in the hospital. Of note, much time was spent with this patient during her admission discussing her condition and prognosis. The patient appears to understand most of what is being told to her but continues to insist that she would like to pursue alternative treatments that are "natural" in order to cure her cancer. She has been shown her scans, and multiple teaching attempts have been made to help the patient understand the severity of her illness as well the concern in regards to her degree of gastric outlet obstruction. The patient was made aware by multiple providers that her obstruction is so severe that she is unable to meet her nutritional needs and that continued p.o. intake without medical intervention will likely continue to exacerbate her pain and discomfort, as well as increase her risk for perforation and other complications. The patient did agree to an endoscopy while she was here in the hospital and the report is not back yet. However, per the verbal report, the patient was unable to have any further evaluation past the stomach, as the pylorus was completely obstructed. This raises a concern for potential peritoneal carcinomatosis or continued advancement of the tumor. Again, this was discussed with the patient , and we did discuss options, such as a venting PEG tube, in order to provide relief of the distention and fluid buildup as well as the possibility of a jejunostomy tube to provide the patient with some type of nutrition. The patient states that she will not pursue any of these therapies until she is further able to pray and research natural alternative therapies. The patient was initially given an NG tube upon admission with verbalized relief. However, the patient asked for it to be removed the following day and proceeded to eat a meal of pancakes, sherbert, and other liquids. Later that evening, she became uncomfortable again, and the NG tube was replaced. The following day, on 01/31/17, she did have her endoscopy. When she returned, she reportedly sneezed and accidently dislodged her NG tube and refused to have it replaced. At this point, we discussed treatment options, as well as other palliative options, which included the venting PEG tube. Again, the patient has declined this, stating that she feels that these medical interventions "will contribute to a decline in her quality of life." We did discuss if the patient leaves the hospital today that she is at risk for gastric perforation as well as inevitable repeated vomiting and abdominal fullness and distention. The patient verbalized understanding of this and has asked to have morphine sent home with her. She does have an appointment to sign on with [facility] on . Prior to discharge, the patient asked for an enema to help with constipation. A KUB did reveal that she does have a large amount of stool within the colon. However, the patient became very agitated that the enema was not provided within the time period that she felt was appropriate and decided to leave without this intervention. Per her request, I did send Dulcolax suppositories to the pharmacy. We have also sent morphine oral concentrate, which will be better absorbed sublingually and hopefully provide the patient with better pain management. She has declined any prescription for lorazepam at this time but will discuss this with [facility] further. I did also send a prescription for scopolamine patches to help with nausea control. Ms. Olivera does not currently have insurance but out of pocket cost estimates were obtained and shared with the patient. Attempt was made to dispense medications to the patient prior to discharge, but the patient declined to stay. Ms. Olivera does have a navigator meeting scheduled next week to help obtain [facility] Medicaid. Again, this is an unfortunate 61-year-old female with stage 4 stomach cancer, who has declined any further traditional therapies for her stomach cancer. She is currently in agreement with the plan to sign on with [facility]. The hospital shutdown planner is working on obtaining her an appointment with a local primary care physician. 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 CONCERNS AT DISCHARGE: [facility] Oliver[facility]. She will sign on with [facility] tomorrow, , at her residence. She has specifically declined an oncology consult or any further gastroenterology consults or interventions at this time. The patient was given education and information regarding potential treatment, such as a venting PEG tube, to follow up on with her primary care provider in the future. DIET: As tolerated. The patient will be comfort care and a patient of [facility]. ACTIVITY: As tolerated. CONDITION: Guarded with poor prognosis. DISPOSITION: To home with hospice sign on. TIME SPENT: Time spent on this discharge was approximately 65 minutes. Again, this is only a brief summary of the patient's hospital course of stay. For full details, please refer to the full medical record. If you have any further questions or need further assistance, please feel free to contact me at [phone]. JOSE FRIAS NP [id number]/[facility] #: [id number] ALICIA
[2017-02-01] MEDS ORDERED: Scopolomine PATCH Remove* 1 NOTE MISC PATCH OFF SCH (23:00)
== END 2017-01-31 17:05 | disposition hospice, home (50) | DRG 380 ==
LOC: ED 18:08 → MED 22:29
PROVIDERS: ADMIT Internal Medicine; ATTEND Internal Medicine
PROC: 0D9670Z Drainage of Stomach with Drainage Device, Via Natural or Artificial Opening (ICD-10-PCS; 2017-01-30)
PROC: 0DB78ZX Excision of Stomach, Pylorus, Via Natural or Artificial Opening Endoscopic, Diagnostic (ICD-10-PCS; principal; 2017-01-31)
DX: K31.1 Adult hypertrophic pyloric stenosis (principal); E43 Unspecified severe protein-calorie malnutrition; C16.4 Malignant neoplasm of pylorus; R64 Cachexia; N17.9 Acute kidney failure, unspecified; K59.00 Constipation, unspecified; I10 Essential (primary) hypertension; E87.1 Hypo-osmolality and hyponatremia; Z68.1 Body mass index [BMI] 19.9 or less, adult; Z88.0 Allergy status to penicillin; E11.9 Type 2 diabetes mellitus without complications; Z83.3 Family history of diabetes mellitus; Z80.9 Family history of malignant neoplasm, unspecified; Z87.891 Personal history of nicotine dependence; E78.5 Hyperlipidemia, unspecified; E87.6 Hypokalemia; Z66 Do not resuscitate
CPT/HCPCS: 36415; 74000; 74176; 80048; 80053; 83605; 83690; 83735; 83880; 84443; 84484; 85025; 85610; 85730; 86140; 88305; 88360; 93005; A9270-GY; J0780; J1642; J2250; J2270; J2405